=== PATIENT | female | born 1995 | race African-American/Black ===

== ENCOUNTER 2021-09-28 13:26 | Emergency (ER) | payer MEDICAID ==
[~2021-09-28] VITALS: Ht 162.6 cm; Wt 62.0 kg
[2021-09-28] MEDS ORDERED: IBUPROFEN 600MG TABLET PO ONE (16:00)
[2021-09-28 16:33] VITALS: BP 126/91
[2021-09-28] MEDS ORDERED: IBUP-2029 MT (17:08)
== END 2021-09-28 17:28 | disposition home or self-care (01) ==
LOC: ER 13:26
DX: S93.491A Sprain of other ligament of right ankle, initial encounter (principal); M25.571 Pain in right ankle and joints of right foot; Z88.2 Allergy status to sulfonamides; W10.8XXA Fall (on) (from) other stairs and steps, initial encounter; Y93.89 Activity, other specified; Y92.89 Other specified places as the place of occurrence of the external cause; Y99.8 Other external cause status; E03.8 Other specified hypothyroidism
CPT/HCPCS: 73610; 81025; 99283